=== PATIENT | female | born 1960 | race American Indian/Alaskan Native ===

== ENCOUNTER 2017-03-22 11:59 | Emergency (ER) | payer SELFPAY ==
[2017-03-22 12:11] VITALS: BP 126/79
--- NOTE | 2017-03-22 14:04 | XRay Report ---
ROUTINE CHEST, TWO VIEWS: Cough. PA and lateral views demonstrate the heart and mediastinal contour to be of normal size and shape. The lungs are clear and fully expanded and the soft tissues and bony structures are normal. No interval change when compared to exams dating back to 2010. IMPRESSION: Normal study.
[2017-03-22] MEDS ORDERED: DUONEB *Not for PRN Use IH ONE ×2 (14:11→14:31)
--- NOTE | 2017-03-22 22:30 | Emergency Department Report ---
Entered by KATRIN BARAKAT, acting as scribe for ERIKA HAYNES NP. - General Chief Complaint: Upper Respiratory Infection Stated Complaint: CHRONIC COUGH Time Seen by Provider: 03/22/17 13:14 Source: patient Mode of arrival: Ambulatory Limitations: No Limitations - History of Present Illness Initial Comments: This is a 35-year-old female is non-toxic, non ill appearing, in no acute distress with PMHx of HTN presents to the ED with c/o a productive cough for 5 days. Patient stated that her symptoms and cough are subsiding but is still present with green mucus. Symptoms have been constant since onset and rates it as aching in severity. Patient reports that she have a productive cough with a dark green sputum. Patient denies fever, chills, SOB, nausea, calf tenderness, stiff neck, CP, headache, blurry vision, diaphoresis, calf pain, sick contacts, long travels, numbness, and tingling. Symptoms of coughing is alleviated while sitting up and aggravated when laying down. Patient states that she has Bronchitis x3 this year that has subsided with antibiotics, steroids, and albuterol by her primary care doctor. She currently works at a [email or web address] and smokes about 1/2 pack of cigarettes a day since the age of 17. Patient stated she is trying to stop smoking. Allergies to Sulfa. Denies PMH. MD Complaint: cough (with dark green sputum) Onset/Timin -: days(s) Severity: moderate Severity scale (0 -10): 5 Quality: aching Improves With: nothing Worsens With: nothing Associated Symptoms: cough (produtive cough with green colored). denies: fever , chills, myalgias, diaphoresis, headache, rhinorrhea, nasal congestion, sore throat, stiff neck, chest pain, shortness of breath, abdominal pain, nausea, vomiting, diarrhea, dysuria, rash, confusion, weight loss, epistaxis, hoarseness , ear pain Treatments Prior to Arrival: none - Related Data Previous Rx's Medication Instructions Recorded Last Taken Type Aspirin [Aspirin TAB] 325 mg PO QDAY #30 tablet 10/10/13 Unknown Rx Docusate Sodium [Colace] 100 mg PO BID PRN #30 capsule 10/10/13 Unknown Rx Ferrous Sulfate [Iron Supplement] 325 mg PO BID #60 tablet 10/10/13 Unknown Rx HYDROcodone/APAP 5-325 [[place] 1 each PO Q8HR PRN #20 tablet 10/10/13 Unknown Rx 5/325 mg] Azithromycin [Zithromax Z-CARLOS] 250 mg PO DAILY #6 tablet 08/24/16 Unknown Rx Prednisone [predniSONE 10 mg 10 mg PO .TAPER #1 tab.ds.pk 08/24/16 Unknown Rx (6-Day Pack, 21 Tabs)] ALBUTEROL Inhaler [Proair] 2 puff IH QID PRN #1 inhalation 03/22/17 Unknown Rx Azithromycin [Zithromax Z-CARLOS] 250 mg PO DAILY #6 tablet 03/22/17 Unknown Rx predniSONE [Deltasone] 20 mg PO BID #10 tab 03/22/17 Unknown Rx Allergies Allergy/AdvReac Type Severity Reaction Status Date / Time Sulfa (Sulfonamide Allergy Itching Verified 03/22/17 12:04 Antibiotics) ED Review of Systems Comment: All other systems reviewed and negative Constitutional: denies: chills, fever Eyes: denies: eye pain, eye discharge, vision change ENT: denies: ear pain, throat pain Respiratory: cough, wheezing (mild wheezing). denies: orthopnea, shortness of breath, SOB with exertion, SOB at rest Cardiovascular: denies: chest pain, palpitations Endocrine: no symptoms reported Gastrointestinal: denies: abdominal pain, nausea, diarrhea Genitourinary: denies: urgency, dysuria, discharge Musculoskeletal: denies: back pain, joint swelling, arthralgia Skin: denies: rash, lesions Neurological: denies: headache, weakness, paresthesias Psychiatric: denies: anxiety, depression Hematological/Lymphatic: denies: easy bleeding, easy bruising ED Past Medical Hx - Past Medical History Hx Hypertension: Yes - Surgical History Additional Surgical History: HERNIA REPAIR - Social History Smoking Status: Current Some Day Smoker Substance Use Type: Alcohol - Medications Home Medications: Home Medications Medication Instructions Recorded Confirmed Last Taken Type Aspirin [Aspirin TAB] 325 mg PO QDAY #30 tablet 10/10/13 Unknown Rx Docusate Sodium [Colace] 100 mg PO BID PRN #30 capsule 10/10/13 Unknown Rx Ferrous Sulfate [Iron Supplement] 325 mg PO BID #60 tablet 10/10/13 Unknown Rx HYDROcodone/APAP 5-325 [[place] 1 each PO Q8HR PRN #20 tablet 10/10/13 Unknown Rx 5/325 mg] Azithromycin [Zithromax Z-CARLOS] 250 mg PO DAILY #6 tablet 08/24/16 Unknown Rx Prednisone [predniSONE 10 mg 10 mg PO .TAPER #1 tab.ds.pk 08/24/16 Unknown Rx (6-Day Pack, 21 Tabs)] ALBUTEROL Inhaler [Proair] 2 puff IH QID PRN #1 inhalation 03/22/17 Unknown Rx Azithromycin [Zithromax Z-CARLOS] 250 mg PO DAILY #6 tablet 03/22/17 Unknown Rx predniSONE [Deltasone] 20 mg PO BID #10 tab 03/22/17 Unknown Rx ED Physical Exam - General Limitations: No Limitations General appearance: alert, in no apparent distress - Head Head exam: Present: atraumatic, normocephalic, normal inspection - Eye Eye exam: Present: normal appearance, PERRL, EOMI. Absent: scleral icterus, conjunctival injection, nystagmus Pupils: Present: normal accommodation. Absent: irregular - ENT ENT exam: Present: normal exam, normal orophraynx, mucous membranes moist, TM's normal bilaterally, normal external ear exam - Expanded ENT Exam Expanded Mouth exam: Present: normal external inspection, tongue normal. Absent: drooling, trismus, muffled voice, tongue elevation, laceration Teeth exam: Present: normal inspection Throat exam: Positive: normal inspection. Negative: tonsillar erythema, tonsillomegaly, tonsillar exudate, R peritonsillar mass, L peritonsillar mass - Neck Neck exam: Present: normal inspection, full ROM. Absent: tenderness, meningismus, lymphadenopathy - Respiratory Respiratory exam: Present: wheezes (mild expiratory wheezing anamaria upper and lower lobes). Absent: respiratory distress, rales, rhonchi, stridor, chest wall tenderness, accessory muscle use, decreased breath sounds, prolonged expiratory - Cardiovascular Cardiovascular Exam: Present: regular rate, normal rhythm, normal heart sounds. Absent: bradycardia, tachycardia, irregular rhythm, systolic murmur, diastolic murmur, rubs, gallop - GI/Abdominal GI/Abdominal exam: Present: soft, normal bowel sounds. Absent: distended, tenderness, guarding, rebound, rigid, diminished bowel sounds - Rectal Rectal exam: Present: deferred - Extremities Exam Extremities exam: Present: normal inspection, full ROM, normal capillary refill. Absent: tenderness (Negative upper and lower bilaterally ), pedal edema , joint swelling, calf tenderness (negative calf tenderness) - Back Exam Back exam: Present: normal inspection, full ROM. Absent: tenderness, CVA tenderness (R), CVA tenderness (L), muscle spasm, paraspinal tenderness, vertebral tenderness, rash noted - Neurological Exam Neurological exam: Present: alert, oriented X3, CN II-XII intact, normal gait, reflexes normal - Psychiatric Psychiatric exam: Present: normal affect, normal mood - Skin Skin exam: Present: warm, dry, intact, normal color. Absent: rash - Other Other exam information: Patient is talking in full sentences with no signs of distress. Negative Tomi' s Test. ED Course Vital Signs 03/22/17 12:07 Temperature 98.3 F Pulse Rate 81 Respiratory 18 Rate Blood Pressure 126/79 O2 Sat by Pulse 97 Oximetry - Reevaluation(s) Reevaluation #1: 03/22/17 14:10 Patient is sitting in a chair talking on the phone with no signs of distress noted. ED Medical Decision Making - Medical Decision Making Ed course: This is a 56-year-old female that presents with upper restaurant infection 1-patient was examined by myself. Chest x-ray has been obtained and dictated by radiologist. Normal/negative findings. X-ray results has been notified to the patient with no further questions noted by patient. 2- patient received DuoNeb 2 and Solu-Medrol 125 mg IM in the ED. Patient stated post-DuoNeb & Medrol patient stated she feels a much better. Wheezing has subsided. 3- patient was discharged with prednisone and albuterol as well as Z-Carlos. 4- patient was instructed to follow-up with her primary care doctor in 24 hours or any symptoms such as increased shortness of breath, difficulty breathing, chest pain, nausea or vomiting, headache return to the emergency room as soon as possible. 5- at time time of discharge, the patient does not seem toxic or ill in appearance. No acute signs of distress noted. Patient agrees to discharge treatment plan of care. No further questions noted by the patient. ED Disposition Clinical Impression: Upper respiratory infection, Bronchitis Disposition: DC- TO HOME OR SELFCARE Is pt being admited?: No Does the pt Need Aspirin: No Condition: Stable Instructions: Albuterol (By breathing), Prednisone (By mouth), Azithromycin ( By mouth), Upper Respiratory Infection (ED), Acute Bronchitis (ED), Acute Cough (ED) Additional Instructions: Follow-up with your primary care doctor in 24 hours or any symptoms such as increased shortness of breath, difficulty breathing, chest pain, nausea or vomiting, headache return to the emergency room as soon as possible. Take ZPak, albuterol, and prednisone as prescribed. Prescriptions: ALBUTEROL Inhaler [Proair] 2 puff IH QID PRN #1 inhalation PRN Reason: Shortness Of Breath Azithromycin [Zithromax Z-CARLOS] 250 mg PO DAILY #6 tablet predniSONE [Deltasone] 20 mg PO BID #10 tab Referrals: [facility] [Outside] - 3-5 Days [facility] [Outside] - 3-5 Days PRIMARY CARE, [Primary Care Provider] - 24 Hours WILLA GUZMAN JR, MD [Staff Physician] - 24 Hours Forms: Work/School Release Form(ED) This documentation as recorded by the YUVAL bella PEARL,accurately reflects the service I personally performed and the decisions made by ,ERIKA HAYNES, [employer]ENT.
== END 2017-03-22 15:23 | disposition home or self-care (01) ==
LOC: ED 11:59
DX: J40 Bronchitis, not specified as acute or chronic (principal); J06.9 Acute upper respiratory infection, unspecified; I10 Essential (primary) hypertension; F17.200 Nicotine dependence, unspecified, uncomplicated
CPT/HCPCS: 71020; 94640; 96372; 99283; J2930